=== PATIENT | male | born 1965 | race Caucasian/White ===

== ENCOUNTER 2021-09-25 13:27 | Emergency (ER) | payer MEDICAID ==
[~2021-09-25] VITALS: Ht 193 cm; Wt 120.2 kg
[2021-09-25 13:27] VITALS: BP_SYST 197
[2021-09-25] MEDS ORDERED: LIDOCAINE/EPI 1% 1:100000 20 ML VIAL INJ ONE (14:15)
[2021-09-25] MEDS ORDERED: DIPH-TET-PERTUS Vaccine 0.5 ML VIAL (ADACEL) I.M. ONE (14:15)
[2021-09-25 15:29] VITALS: BP_SYST 197
== END 2021-09-25 15:29 | disposition home or self-care (01) ==
LOC: SED 14:57
DX: S01.311A Laceration without foreign body of right ear, initial encounter (principal); H92.21 Otorrhagia, right ear; W26.8XXA Contact with other sharp object(s), not elsewhere classified, initial encounter; Y93.89 Activity, other specified; Y92.89 Other specified places as the place of occurrence of the external cause; Y99.8 Other external cause status
CPT/HCPCS: 90715; 99283

== ENCOUNTER 2021-10-17 16:59 | Inpatient (IN) | payer MEDICAID ==
[~2021-10-17] VITALS: Ht 193 cm; Wt 112.0 kg
[2021-10-17 17:40] VITALS: BP_SYST 149
--- NOTE | 2021-10-17 17:40 | NUR ---
Pt triaged and awaiting ER bed to become available. Will remain in ER lobby until then.
--- NOTE | 2021-10-17 18:55 | NUR ---
MD with patient for evaluation.
[2021-10-17] MEDS ORDERED: NS 1000 ML IV.SOLN IV ONE (19:00)
[2021-10-17] MEDS ORDERED: cefTRIAXone 1 GM IVPB PREMIX 50 ML IV ONE (19:00)
[2021-10-17] MEDS ORDERED: ACETAMINOPHEN 500 MG TABLET PO ONE (19:00)
--- NOTE | 2021-10-17 19:19 | NUR ---
REPORT GIVEN TO ROBYN PARIKH WHO WILL ASSUME CARE.
[2021-10-17 21:09] LABS: ANION GAP 7 (5-15); BASOPHILS # (AUTO) 0.1 K/uL (0.0-0.2); BASOPHILS % (AUTO) 0.7 % (0.0-2.0); CALCIUM 8.3 mg/dL (8.4-11.0); CHLORIDE 98 mmol/L (98-107); CREATININE 7.48 mg/dL (0.55-1.30); EOSINOPHILS # (AUTO) 0.1 K/uL (0.0-0.4); EOSINOPHILS % (AUTO) 0.9 % (0.0-4.0); GLUCOSE 111 mg/dL (70-99); HEMATOCRIT 25.9 % (36-54); HEMOGLOBIN 8.7 g/dL (14.0-18.0); LYMPHOCYTES # (AUTO) 0.9 K/uL (1.0-5.5); MEAN CORPUSCULAR HEMOGLOBIN 30 pg (27-31); MEAN CORPUSCULAR HGB CONC 33 % (32-36); MEAN CORPUSCULAR VOLUME 89 fL (79.0-98.0); MONOCYTES % (AUTO) 11.3 % (1.7-9.3); NEUTROPHILS # (AUTO) 6.9 K/uL (1.8-7.7); NEUTROPHILS % (AUTO) 77.1 % (40.0-70.0); PLATELET COUNT (AUTO) 179 K/uL (130-430); POTASSIUM 4.8 mmol/L (3.5-5.1); RED BLOOD CELL COUNT(AUTO) 2.92 MIL/uL (4.2-6.2); RED CELL DISTRIBUTION WIDTH 16.1 % (9.0-15.0); SODIUM SERUM 133 mmol/L (136-145); UREA NITROGEN, BLOOD 29 mg/dL (8-21); WHITE BLOOD COUNT (AUTO) 8.9 K/uL (4.8-10.8)
[2021-10-17 21:17] LABS: ALANINE AMINOTRANSFERASE 9 U/L (12-78); ALBUMIN 2.1 g/dL (3.4-4.8); ASPARTATE AMINOTRANSFERASE 21 U/L (10-37); TOTAL BILIRUBIN 0.8 mg/dL (0.0-1.0)
[2021-10-17 21:36] LABS: GFR AFRICAN AMERICAN 10 mL/min (>90)
[2021-10-17] MEDS ORDERED: HYDROcodone/ACETAMIN 5-325 MG TAB (NORCO/ VICODIN) PO ONE (21:45)
--- NOTE | 2021-10-17 22:33 | NUR ---
Pt is a dialysis patient, and has a port of the right side.
--- NOTE | 2021-10-17 22:33 | NUR ---
Pt came from home with c/o pain and bleeding from the left bottom foot, rate pain 10/10. Bleeding is controled. Pt has severe swelling in both lower extremities. Pt is A&O x4, and follows simple commands. Reports history of DM, HTN, and congestive heart failure.
[2021-10-17] MEDS ORDERED: cefTRIAXone 1 GM VIAL ONE (23:09)
[2021-10-17] MEDS ORDERED: ACETAMINOPHEN 500 MG TABLET ONE (23:11)
[2021-10-18] MEDS ORDERED: HYDROcodone/ACETAMIN 10-325 MG TAB PO SCH
--- NOTE | 2021-10-18 00:15 | NUR ---
Pt not able to provide home medications.
[2021-10-18] MEDS ORDERED: VANCOMYCIN HCL 1000 MG/VIAL IV ONE (00:18)
[2021-10-18] MEDS ORDERED: VANCOMYCIN HCL 1 GM/NS PREMIX 250 ML IV ONE (00:30)
--- NOTE | 2021-10-18 00:35 | NUR ---
HUMBERTO COLLECTED AMD SENT OVER TO LAB.
--- NOTE | 2021-10-18 01:22 | NUR ---
Admit bed requested Patient will be admitted to care of . Admitted to med surg unit. Diagnosis Cellulitis Inpatient (Yes or No) YES Observation (Yes or No) NO Orientation concerns or request close to nursing station (Yes or No) NO Covid Status PENDING On vent or bipap NO Isolation requirements NO Needs a sitter NO From Home (Yes or if No enter name of facility) YES Requires Dialysis (Yes or No) YES Med Rec Completed (Yes of No) NO, PT UNABLE TO RECALL MEDS.
[2021-10-18 01:27] LABS: BILIRUBIN,URINE NEGATIVE (NEGATIVE); CLARITY/URINE CLEAR (CLEAR); COLOR,URINE YELLOW (YELLOW); GLUCOSE,URINE TRACE (NEGATIVE); KETONES,URINE NEGATIVE (NEGATIVE); LEUKOCYTE ESTERASE ,URINE NEGATIVE (NEGATIVE); NITRITE, URINE NEGATIVE (NEGATIVE); PH,URINE 8.5 (5.0-8.0); PROTEIN URINE 3+ (NEGATIVE); UROBILINOGEN,URINE 0.2 (0.2-1.0)
[2021-10-18 01:29] LABS: BLOOD, URINE TRACE (NEGATIVE)
[2021-10-18 01:52] LABS: BACTERIA,URINE FEW /HPF (None Seen); RBC,URINE 0-3 /HPF (0-3); WBC,URINE 0-3 /HPF (0-3)
--- NOTE | 2021-10-18 02:10 | NUR ---
Pt resting at edge of bed with eyes closed. Pt reminded to stay all the way in bed. Non-slip socks applied. Safety precautions in place.
--- NOTE | 2021-10-18 02:45 | NUR ---
BSG 99
--- NOTE | 2021-10-18 03:19 | NUR ---
Patient will be admitted to care of Dr. Connors. Admitted to med surg unit. Will go to room 111A. Belongings list completed. Complete and up to date summary report printed. SBAR report given to Rosario CARLSON at bedside with opportunity for questions.
[2021-10-18] MEDS ORDERED: PIPERACILLIN/TAZOBACTAM 2.25 GM VIAL IV ONE (03:32)
[2021-10-18 04:00] VITALS: BP_SYST 137
--- NOTE | 2021-10-18 04:00 | NUR ---
ADMISSION: The patient, KAYLEEN URIBE, 56 y/o, M admitted by GAIL BACON MD, was given written information regarding hospital policies, unit procedures and contact persons. Valuables were checked and documented in [facility]..
[2021-10-18] MEDS: PIPERACILLIN/TAZOBACTAM 2.25 GM in NS 50 ML IV SCH ×3 (06:00)
--- NOTE | 2021-10-18 06:00 | NUR ---
PT RESTING COMFORTABLY IN BED, AOX4, NO DISTRESS OR DISCOMFORT NOTED, BREATHING EVEN AND UNLABORED, ALL FALL PROTOCOLS MAINTAINED, REPOSITIONS SELF PER COMFORT, PT VOMITED X1, WOUND PICTURE TAKEN AND PLACED IN THE CHART AND DRESSING DONE, DENIES PAIN, WILL CONTINUE TO MONITOR. Addendum: 10/18/21 at 0711 by [place] can reforming machine operator WOUND CULTURE SWAB DONE AND MRSA DONE AND SENT TO LAB.
--- NOTE | 2021-10-18 07:25 | NUR ---
SHIFT REPORT REPORT GIVEN TO JACQUELIN RN FOR CONTINUITY OF CARE ALL QUESTIONS WERE ANSWERED AND RN VERBALIZED UNDERSTANDING.
[2021-10-18 08:00] VITALS: BP_SYST 166
[2021-10-18] MEDS ORDERED: PIPERACILLIN/TAZOBACTAM 2.25 GM in NS 50 ML IV SCH (08:20)
[2021-10-18] MEDS ORDERED: CARV25TA55 PO (10:24)
[2021-10-18] MEDS ORDERED: ISOS30TA85 PO (10:27)
[2021-10-18] MEDS ORDERED: AMIT25TA9 PO (10:28)
[2021-10-18] MEDS ORDERED: BUME1TAB8 PO (10:29)
[2021-10-18] MEDS ORDERED: DOXY100T2 PO (10:30)
[2021-10-18] MEDS ORDERED: APIX5TAB4 PO (10:31)
[2021-10-18] MEDS ORDERED: LYR25 PO (10:33)
[2021-10-18] MEDS ORDERED: PHEDM120 PO (10:36)
[2021-10-18] MEDS ORDERED: SUCR500T PO (10:36)
[2021-10-18] MEDS ORDERED: ERGO50CA PO (10:42)
[2021-10-18] MEDS ORDERED: HYDR-3917 PO (10:43)
[2021-10-18] MEDS ORDERED: FOLI-43 PO (10:44)
[2021-10-18] MEDS: INSULIN REGULAR, HUMAN 100 UNITS/ML, 10 ML VIAL (humuLIN R) SUBCUT SCH ×3 (11:30→20:57)
[2021-10-18] MEDS ORDERED: PROMETHAZINE-DM 6.25 MG-15 MG/5 ML UDC PO PRN (11:45)
[2021-10-18] MEDS ORDERED: HYDROcodone/ACETAMIN 5-325 MG TAB (NORCO/ VICODIN) PO PRN (11:45)
[2021-10-18] MEDS ORDERED: NALOXONE HCL 0.4 MG/ML AMP (NARCAN) IVP PRN (11:45)
[2021-10-18] MEDS ORDERED: HYDROcodone/ACETAMIN 10-325 MG TAB PO PRN (12:02)
[2021-10-18] MEDS ORDERED: ISOSORBIDE MONONITRATE 30 MG TAB.ER.24H PO ONE (12:30)
[2021-10-18] MEDS ORDERED: BUMETANIDE 1 MG TABLET PO ONE (12:30)
[2021-10-18 12:52] VITALS: BP_SYST 152
[2021-10-18] MEDS ORDERED: HEPARIN SODIUM,PORCINE 5,000 UNITS/ML VIAL MC ONE (13:30)
--- NOTE | 2021-10-18 16:00 | NUR ---
CRITICAL LAB: from Laboratory called with critical lab value procalcitonin 2.10. Medical record number and patient name verified. Read back of values done. ID consult MD rider notified of value. meds orders given at this time.
[2021-10-18 16:03] VITALS: BP_SYST 160
[2021-10-18] MEDS ORDERED: EPOETIN ALFA-EPBX 4,000 UNITS/ML VIAL SUBCUT SCH (17:00)
[2021-10-18] MEDS ORDERED: VANCOMYCIN HCL 500 MG in NS 100 ML IV ONE (17:00)
--- NOTE | 2021-10-18 18:48 | NUR ---
A/Ox4,BP 160/83,has HD done and removed 2.6L per HD nurse,pt tolerated HD no acute distress noted,resumed meds after HD,cellulitis wounds in both feet,dressing changed per pt requests,c/o mild pain but pt refused to take prn meds for now.saline lock 20 gauge in left forearm patent and intact,needs attended,call light & personal items within pt reach safety maintained.continue to monitor pt.
[2021-10-18 20:00] VITALS: BP_SYST 149
[2021-10-18] MEDS ORDERED: MICAFUNGIN SODIUM 100 MG in NS 100 ML IV ONE (20:00)
--- NOTE | 2021-10-18 20:00 | NUR ---
REC'D PT IN BED AOX4, NO DISTRESS OR DISCOMFORT NOTED, BREATHING EVEN AND UNLABORED, DENIES PAIN, VITAL SIGNS STABLE, PT RESTING COMFORTABLY IN BED, ALL FALL PROTOCOLS MAINTAINED, BED IN LOWEST POSITION, CALL LIGHT WITHIN REACH, EDUCATED PT TO CALL FOR ASSISTANCE WHEN NEEDED, PT VERBALIZED UNDERSTANDING, WILL CONTINUE TO MONITOR.
[2021-10-18] MEDS: ceFAZolin SODIUM 1 GM in D5W 50 ML IV SCH (20:46)
[2021-10-18] MEDS: PREGABALIN 25 MG CAPSULE (LYRICA) PO SCH (20:47)
[2021-10-18] MEDS: AMITRIPTYLINE HCL 25 MG TABLET (ELAVIL) PO SCH (20:47)
[2021-10-18] MEDS: CARVEDILOL 25 MG TABLET (COREG) PO SCH (20:47)
[2021-10-18] MEDS: APIXABAN 2.5 MG TABLET PO SCH (20:57)
[2021-10-19] VITALS: BP_SYST 130
--- NOTE | 2021-10-19 04:00 | NUR ---
NO CHANGES NOTED THROUGHOUT THE SHIFT, PT RESTING COMFORTABLY IN BED, AOX4, NO DISTRESS OR DISCOMFORT NOTED, BREATHING EVEN AND UNLABORED, ALL FALL PROTOCOLS MAINTAINED, REPOSITIONS SELF PER COMFORT, WILL CONTINUE TO MONITOR.
[2021-10-19] MEDS: INSULIN REGULAR, HUMAN 100 UNITS/ML, 10 ML VIAL (humuLIN R) SUBCUT SCH ×4 (06:44→21:00)
--- NOTE | 2021-10-19 07:19 | NUR ---
SHIFT CHANGE REPORT GIVEN TO PILLO RN FOR CONTINUITY OF CARE ALL QUESTIONS WERE ANSWERED AND RN VERBALIZED UNDERSTANDING.
[2021-10-19 08:54] LABS: CALCIUM 7.9 mg/dL (8.4-11.0); CREATININE 7.56 mg/dL (0.55-1.30); POTASSIUM 4.8 mmol/L (3.5-5.1)
[2021-10-19] MEDS ORDERED: EPOETIN ALFA-EPBX 4,000 UNITS/ML VIAL SUBCUT SCH (09:02)
[2021-10-19] MEDS: ISOSORBIDE MONONITRATE 30 MG TAB.ER.24H PO SCH (09:57)
[2021-10-19] MEDS: CARVEDILOL 25 MG TABLET (COREG) PO SCH ×2 (09:58→22:07)
[2021-10-19] MEDS: ceFAZolin SODIUM 1 GM in D5W 50 ML IV SCH ×2 (09:59→21:30)
[2021-10-19] MEDS: BUMETANIDE 1 MG TABLET PO SCH (09:59)
[2021-10-19] MEDS: APIXABAN 2.5 MG TABLET PO SCH ×2 (10:08→22:07)
[2021-10-19] MEDS: FOLIC ACID 1 MG TABLET PO SCH (10:08)
--- NOTE | 2021-10-19 16:30 | NUR ---
WOUND EVALUATION: Late note for 10/19/2021 at 1630 secondary to patient care. Wound Consult received from Dr. Connors. Thank you, Dr. Connors, for the consult. Patient received in a Ora Bed with an Isoflex mattress, awake, alert, and oriented. Patient is able to turn independently. Cash Score is a 20. Past Medical History: Hypertension, Diabetes Mellitus, End-Stage Renal Failure, Peripheral Vascular Disease of Lower Extremities, Charcot Foot, multiple surgeries of the right foot. Recent Labs: WBC 8.9, RBC 2.92, hemoglobin 8.7, hematocrit 25.9, ESR 109, sodium 134, BUN 33, creatinine 7.56, GFR 8, glucose 108, POC glucose 113, calcium 7.9, albumin 2.1. Microbiology: Blood culture results x2 in progress. Urine culture results negative. MRSA screen results negative. Wound culture results positive for Pseudomonas aeruginosa. Intrinsic factors that delay wound healing: Diabetes Mellitus, End-Stage Renal Failure, Peripheral Vascular Disease of Lower Extremities, Charcot Foot, multiple surgeries of the right foot, Hypoalbuminemia. Extrinsic factors that delay wound healing: Decreased mobility. Wound Assessment: 1. Right Plantar Heel: Acute on Chronic Diabetic ulcer, present on admission. Wound bed has 55% yellow slough, 40% black slough, 5% dark red tissue. Mild odor, scant yellow drainage. Periwound intact. Surrounding tissue has yellow and brown scaly skin. Foot has Charcot changes. Measures 6.5 cm x 5.8 cm x 0.5 cm. 2. Right Plantar Lateral Foot: Acute on Chronic Diabetic ulcer, present on admission. Wound bed has 55% yellow slough, 40% black slough, 5% dark red tissue. Mild odor, scant yellow drainage. Periwound intact. Surrounding tissue has yellow and brown scaly skin. Foot has Charcot changes. Measures 6.8 cm x 6.6 cm x 1.5 cm. Recommend: Cleanse wounds with normal saline. Apply moisture barrier cream to jose ramon-wounds. Apply Venelex ointment to wound beds. Cover with foam dressings. Wrap with Tereza wrap. Perform wound care daily, and as needed for dressing soiling or dislodgement. 3. Left Plantar Foot, Second Metatarsal Head: Chronic diabetic ulcer, present on admission. Wound bed has 100% black eschar. No odor, no drainage. Periwound intact. Dry, stable. Foot has Charcot changes. Wound measures 1.8 cm x 1.5 cm. 4. Left Plantar Foot, Fourth Metatarsal Head: Chronic diabetic ulcer, present on admission. Wound bed has 100% black eschar. No odor, no drainage. Periwound intact. Dry, stable. Foot has Charcot changes. Wound measures 1.7 cm x 1.5 cm. 5. Left Plantar Lateral Foot, Fifth Metatarsal Head: Chronic diabetic ulcer, present on admission. Wound bed has 100% black eschar. No odor, no drainage. Periwound intact. Dry, stable. Foot has Charcot changes. Wound measures 0.7 cm x 0.6 cm. Recommend: [place] wound beds with Betadine daily. Cover sites with foam dressings. Change dressing daily, and as needed for dressing soiling or dislodgment. 6. Right Ear Lobe: Dry black scab, present on admission. Scab site has sutures inside. No odor, no drainage. Scab is starting to fall off. Wound measures 0.6 cm x 0.6 cm. Recommend: No dressing needed. Continue to monitor site every shift. Scab will fall off when wound site has healed. Also recommend: Reposition patient every 2 hours with pillow support and off-load pressure areas with pillows for pressure re-distribution. Offload, elevate and float bilateral heels with pillows. Perform skin care and monitor skin integrity Q shift. Use moisture barrier cream on buttocks and other moisture susceptible areas QID and as needed for soiling. Place patient on a low air-loss mattress.
[2021-10-19] MEDS: BALSAM PERU/CASTOR OIL 56.7 GM OINT...G. TP SCH (17:00)
[2021-10-19] MEDS: CALCIUM ACETATE 667 MG CAP PO SCH (19:12)
[2021-10-19 20:00] VITALS: BP_SYST 145
[2021-10-19] MEDS: MICAFUNGIN SODIUM 100 MG in NS 100 ML IV SCH (21:30)
[2021-10-19] MEDS: AMITRIPTYLINE HCL 25 MG TABLET (ELAVIL) PO SCH (22:07)
[2021-10-19] MEDS: PREGABALIN 25 MG CAPSULE (LYRICA) PO SCH (22:07)
[2021-10-20] VITALS: BP_SYST 151
[2021-10-20] MEDS: INSULIN REGULAR, HUMAN 100 UNITS/ML, 10 ML VIAL (humuLIN R) SUBCUT SCH ×3 (07:00→17:00)
--- NOTE | 2021-10-20 07:26 | NUR ---
SHIFT CHANGE REPORT GIVEN TO PILLO RN FOR CONTINUITY OF CARE ALL QUESTIONS WERE ANSWERED AND RN VERBALIZED UNDERSTANDING.
[2021-10-20 08:00] VITALS: BP_SYST 147
[2021-10-20] MEDS ORDERED: EPOETIN ALFA-EPBX 3,000 UNITS/ML VIAL SUBCUT SCH (09:00)
[2021-10-20] MEDS: CARVEDILOL 25 MG TABLET (COREG) PO SCH ×2 (09:58→20:18)
[2021-10-20] MEDS: CALCIUM ACETATE 667 MG CAP PO SCH ×3 (09:58→18:51)
[2021-10-20] MEDS: ceFAZolin SODIUM 1 GM in D5W 50 ML IV SCH (09:59)
[2021-10-20] MEDS: FOLIC ACID 1 MG TABLET PO SCH (09:59)
[2021-10-20] MEDS: BUMETANIDE 1 MG TABLET PO SCH (10:00)
[2021-10-20] MEDS: BALSAM PERU/CASTOR OIL 56.7 GM OINT...G. TP SCH (10:00)
[2021-10-20] MEDS: ISOSORBIDE MONONITRATE 30 MG TAB.ER.24H PO SCH (10:00)
[2021-10-20] MEDS: APIXABAN 2.5 MG TABLET PO SCH ×2 (10:01→20:19)
[2021-10-20] MEDS ORDERED: HEPARIN SODIUM,PORCINE 5,000 UNITS/ML VIAL MC ONE (12:45)
[2021-10-20] MEDS ORDERED: amLODIPine BESYLATE 10 MG TABLET PO ONE (18:00)
[2021-10-20] MEDS ORDERED: cloNIDine HCL 0.1 MG TABLET PO PRN (18:00)
[2021-10-20] MEDS ORDERED: cloNIDine HCL 0.1 MG TABLET PO ONE (18:30)
[2021-10-20] MEDS ORDERED: EPOETIN ALFA 4,000 UNITS/ML VIAL ONE ×2 (18:49→18:58)
[2021-10-20 20:00] VITALS: BP_SYST 154
[2021-10-20] MEDS: PREGABALIN 25 MG CAPSULE (LYRICA) PO SCH (20:17)
[2021-10-20] MEDS: AMITRIPTYLINE HCL 25 MG TABLET (ELAVIL) PO SCH (20:17)
[2021-10-20] MEDS: MICAFUNGIN SODIUM 100 MG in NS 100 ML IV SCH (20:20)
[2021-10-20 21:19] VITALS: BP_SYST 154
--- NOTE | 2021-10-20 22:01 | NUR ---
DISCHARGE INSTRUCTIONS GIVEN TO PATIENT. PATIENT VERBALIZED UNDERSTANDING OF T HE DISCHARGE INSTRUCTIONS. PAPERWORKS ACKNOWLEDGED AND SIGNED BY PATIENT. PATIENT DISCHARGED IN STABLE CONDITION. NO DISTRESS NOTED. HEPLOCK REMOVED WITH CATHETER INTACT. VS STABLE. WHEELED BY VINCENT CARLSON TO THE EXIT DOOR. DISCHARGED AT 2200H.
== END 2021-10-20 22:17 | disposition home or self-care (01) | DRG 383 ==
LOC: SED 16:59 → SMU 10-18 00:32
PROVIDERS: ADMIT Family Medicine; ATTEND Family Medicine
PROC: 5A1D70Z Performance of Urinary Filtration, Intermittent, Less than 6 Hours Per Day (ICD-10-PCS; principal; 2021-10-20)
DX: L03.116 Cellulitis of left lower limb (principal); E43 Unspecified severe protein-calorie malnutrition; A52.16 Charcot's arthropathy (tabetic); E11.610 Type 2 diabetes mellitus with diabetic neuropathic arthropathy; I12.0 Hypertensive chronic kidney disease with stage 5 chronic kidney disease or end stage renal disease; E11.22 Type 2 diabetes mellitus with diabetic chronic kidney disease; D64.9 Anemia, unspecified; L03.115 Cellulitis of right lower limb; N18.6 End stage renal disease; E11.51 Type 2 diabetes mellitus with diabetic peripheral angiopathy without gangrene; E11.621 Type 2 diabetes mellitus with foot ulcer; L97.428 Non-pressure chronic ulcer of left heel and midfoot with other specified severity; Z99.2 Dependence on renal dialysis; Z79.899 Other long term (current) drug therapy; E44.0 Moderate protein-calorie malnutrition
CPT/HCPCS: 36415; 71045; 73721; 80048; 80053; 80202; 81000; 82962; 83605; 84484; 85025; 85651-TC; 85730-TC; 86140; 87040; 87070-TC; 87081; 87086; 90935; 90937; 93005; 93923; 96365; 99291; J0690; J0696; J0885; J1644; J1815; J2248; J2543; J3370; J7030; J7060; Q5106

== ENCOUNTER 2022-01-12 14:04 | Inpatient (IN) | payer MEDICAID ==
[~2022-01-12] VITALS: Ht 193 cm; Wt 99.8 kg
[~2022-01-12 14:04] MED LIST: AMIT25TA9 PO; APIX5TAB4 PO; BUME1TAB8 PO; CARV25TA55 PO; DOXY100T2 PO; ERGO50CA PO; FOLI-43 PO; HYDR-3917 PO; ISOS30TA85 PO; LYR25 PO; PHEDM120 PO; SUCR500T PO
[2022-01-12 14:10] VITALS: BP_SYST 110
--- NOTE | 2022-01-12 14:26 | NUR ---
Placed in room 7 . Placed on cardiac technologist, blood pressure machine and pulse oximeter. To gown for exam. Side rails up. Report given to ROBYN SULLIVAN.
--- NOTE | 2022-01-12 14:45 | NUR ---
RECEIVED PT IN BED #7 BIBA FROM DIALYSIS CENTER FOR CC OF FAST HEART RATE NOT ALLOWING FOR DIALYSIS. PT IS STABLE, NAD, VSS, AAOX3, MILD PAIN TO THE BILATERAL FEET. PT HAS WOUNDS THAT ARE BEING TREATED BY OUTPATIENT CARE. PT TO BE FURTHER ASSESSED BY ED MD FOR PLAN OF CARE WITH DISPOSITION.
[2022-01-12] MEDS ORDERED: dilTIAZem HCL IVP 5 MG/ML VIAL IVP ONE ×2 (15:00→19:45)
--- NOTE | 2022-01-12 15:00 | NUR ---
ER at bedside examining patient.
[2022-01-12 15:45] LABS: BASOPHILS % (AUTO) 0.5 % (0.0-2.0); EOSINOPHILS % (AUTO) 0.4 % (0.0-4.0); LYMPHOCYTES # (AUTO) 0.8 K/uL (1.0-5.5); MEAN CORPUSCULAR HEMOGLOBIN 27 pg (27-31); MEAN CORPUSCULAR HGB CONC 32 % (32-36); MEAN CORPUSCULAR VOLUME 84 fL (79.0-98.0); MONOCYTES # (AUTO) 0.8 K/uL (0.0-1.0); MONOCYTES % (AUTO) 7.8 % (1.7-9.3); NEUTROPHILS # (AUTO) 8.4 K/uL (1.8-7.7); NEUTROPHILS % (AUTO) 83.3 % (40.0-70.0); PLATELET COUNT (AUTO) 408 K/uL (130-430); RED BLOOD CELL COUNT(AUTO) 2.23 MIL/uL (4.2-6.2); RED CELL DISTRIBUTION WIDTH 17.4 % (9.0-15.0); WHITE BLOOD COUNT (AUTO) 10.1 K/uL (4.8-10.8)
[2022-01-12] MEDS ORDERED: VANCOMYCIN HCL 1,000 MG in NS 250 ML IV ONE (15:45)
[2022-01-12] MEDS ORDERED: PIPERACILLIN/TAZO 3.375 GM in NS 50 ML IV ONE (15:45)
[2022-01-12] MEDS ORDERED: VANCOMYCIN HCL 1000 MG/VIAL IV ONE (15:57)
[2022-01-12 15:58] LABS: INR 1.1 (0.80-1.20); PROTHROMBIN TIME 10.8 SECS (9.5-12.5)
[2022-01-12] MEDS ORDERED: PIPERACILLIN/TAZOBACTAM 3.375 GM/VIAL (ZOSYN) IV ONE (15:58)
[2022-01-12 16:00] LABS: HEMATOCRIT 18.7 % (36-54)
[2022-01-12] MEDS ORDERED: fentaNYL CITRATE/PF 100 MCG/2 ML AMP IVP ONE (16:00)
[2022-01-12 16:10] LABS: ANION GAP 9 (5-15); CALCIUM 8.9 mg/dL (8.4-11.0); CHLORIDE 97 mmol/L (98-107); CREATININE 5.86 mg/dL (0.55-1.30); GFR AFRICAN AMERICAN 13 mL/min (>90); GLUCOSE 115 mg/dL (70-99); POTASSIUM 4.9 mmol/L (3.5-5.1); UREA NITROGEN, BLOOD 34 mg/dL (8-21)
[2022-01-12] MEDS ORDERED: ONDANSETRON HCL 4 MG/2 ML VIAL IVP ONE (16:15)
[2022-01-12 16:19] LABS: ALANINE AMINOTRANSFERASE 17 U/L (12-78); ALBUMIN 0.9 g/dL (3.4-4.8); ASPARTATE AMINOTRANSFERASE 37 U/L (10-37); LACTATE DEHYDROGENASE 170 U/L (85-227); TOTAL BILIRUBIN 0.6 mg/dL (0.0-1.0)
[2022-01-12] MEDS ORDERED: ONDANSETRON HCL 4 MG/2 ML VIAL ONE (16:20)
[2022-01-12 16:30] LABS: C-REACTIVE PROTEIN QUANT 27.8 mg/dL (0-0.5)
[2022-01-12] MEDS ORDERED: NACL 0.9% 1,000 ML IV ONE (16:30)
--- NOTE | 2022-01-12 18:06 | NUR ---
PT IS STABLE, NAD, VSS, AAOx3, AWAITING ROOM ON TELEMETRY AND ADMISSION ORDERS.
--- NOTE | 2022-01-12 18:15 | NUR ---
Admit bed requested Patient will be admitted to care of . Admitted to ICU unit. Diagnosis AFIB Inpatient (Yes or No) Y Observation (Yes or No) N Orientation concerns or request close to nursing station (Yes or No) N Covid Status N On vent or bipap N Isolation requirements N Needs a sitter N From Home (Yes or if No enter name of facility) Y Requires Dialysis (Yes or No) Y Med Rec Completed (Yes of No) Y
--- NOTE | 2022-01-12 21:00 | NUR ---
Consent signed per DR. HUFFMAN AND PATIENT agreeing to administration of blood. Blood has been type and crossmatched. Blood sent from blood bank. Information on unit of blood checked against patient wristband at bedside by two nurses. All information matches. Patient or responsible republican informed of potential complications associated with blood transfusion. Informed of possible transfusion reaction symptoms. Aware of need to notify nurse at once of itching, shortness of breath, flushing, feeling of impending doom, or other symptoms not previously present. Vital signs taken within 5 minutes prior to initiation of transfusion. RN will remain with patient for first 15 minutes of transfusion at which time vital signs will be re-assessed.
--- NOTE | 2022-01-12 21:25 | NUR ---
BLOOD TRANSFUSION STARTED.
[2022-01-12] MEDS ORDERED: DIPHENHYDRAMINE INJ 50 MG/ML VIAL IVP ONE (21:30)
--- NOTE | 2022-01-12 22:50 | NUR ---
Patient will be admitted to care of ICU MD. Admitted to unit. Will go to room . Belongings list completed. Complete and up to date summary report printed. SBAR report to be given at bedside with opportunity for questions.
[2022-01-12 22:55] VITALS: BP_SYST 108
--- NOTE | 2022-01-12 23:05 | NUR ---
PATIENT TRANSFERRED WITHOUT ISSUE. CARE AND REPORT GIVEN TO ROBYN MARIO.
[2022-01-12] MEDS ORDERED: ONDANSETRON HCL 4 MG/2 ML VIAL IVP PRN (23:15)
[2022-01-12] MEDS ORDERED: PROMETHAZINE-DM 6.25 MG-15 MG/5 ML UDC PO PRN (23:15)
[2022-01-12] MEDS ORDERED: NALOXONE HCL 0.4 MG/ML AMP (NARCAN) IVP PRN (23:15)
[2022-01-12] MEDS ORDERED: ACETAMINOPHEN 325 MG TABLET PO PRN (23:15)
[2022-01-12] MEDS: AMITRIPTYLINE HCL 25 MG TABLET (ELAVIL) PO SCH (23:30)
[2022-01-13] VITALS (23 sets, daily range): BP systolic 92–142
--- NOTE | 2022-01-13 00:01 | NUR ---
CONSULTATION PAGED/CALLED Reason for Consultation: Uncontrolled Afib Person Who was Notified: kannan Bustamante Consulting Physician: Dr. Jenny Pinto Bottom Turning Lathe Turner Specialty: Cardiology Ordering Physician: Dr. Judy Pinto
--- NOTE | 2022-01-13 00:05 | NUR ---
CONSULTATION PAGED/CALLED Reason for Consultation: AFIB Person Who was Notified: kannan Mazariegos Consulting Physician: Dr Barker Industrial Technology Teacher Specialty: Pulmonary Ordering Physician: Dr Judy Pinto
--- NOTE | 2022-01-13 00:07 | NUR ---
CONSULTATION PAGED/CALLED Reason for Consultation: BLE wound infection Person Who was Notified: Calin Lowry Consulting Physician: Dr Villa Safety Fire Boss Specialty: ID Ordering Physician: Dr. Judy Pinto
[2022-01-13] MEDS ORDERED: NOREPINEPHRINE BITARTRATE 4 MG in NS 246 ML IV PRN (00:15)
[2022-01-13] MEDS ORDERED: dilTIAZem HCL IVP 5 MG/ML VIAL IVP ONE (00:15)
[2022-01-13] MEDS ORDERED: [UNRECOGNIZED DRUG - OTHER] IV SCH (00:15)
--- NOTE | 2022-01-13 00:33 | NUR ---
CONSULTATION PAGED/CALLED Reason for Consultation: Anemia Person Who was Notified: Calin Bustamante Consulting Physician: Dr. Garcia Mail Handler Specialty: Hematology Ordering Physician: Dr. Judy Pinto
--- NOTE | 2022-01-13 00:35 | NUR ---
CONSULTATION PAGED/CALLED Reason for Consultation: Dialysis Person Who was Notified: Margarette Consulting Physician: Dr Dodge Security Control Room Officer Specialty: Nephrology Ordering Physician: Dr.A. Pinto
[2022-01-13] MEDS ORDERED: PIPERACILLIN/TAZOBACTAM 2.25 GM VIAL IV ONE (02:31)
[2022-01-13] MEDS ORDERED: NORMAL SALINE 5 ML DISP.SYRIN IVF SCH (06:00)
[2022-01-13] MEDS: NORMAL SALINE 5 ML DISP.SYRIN IVF SCH ×3 (06:00→21:56)
[2022-01-13 08:31] LABS: CALCIUM 8.1 mg/dL (8.4-11.0); CREATININE 6.49 mg/dL (0.55-1.30); PHOSPHORUS 5.7 mg/dL (2.7-4.5); POTASSIUM 5.3 mmol/L (3.5-5.1)
[2022-01-13 08:53] LABS: BASOPHILS # (AUTO) 0.1 K/uL (0.0-0.2); BASOPHILS % (AUTO) 0.6 % (0.0-2.0); EOSINOPHILS # (AUTO) 0.2 K/uL (0.0-0.4); EOSINOPHILS % (AUTO) 2.6 % (0.0-4.0); LYMPHOCYTES # (AUTO) 0.7 K/uL (1.0-5.5); LYMPHOCYTES % (AUTO) 7.8 % (20.5-51.5); MEAN CORPUSCULAR HEMOGLOBIN 28 pg (27-31); MEAN CORPUSCULAR HGB CONC 33 % (32-36); MEAN CORPUSCULAR VOLUME 85 fL (79.0-98.0); MONOCYTES # (AUTO) 0.5 K/uL (0.0-1.0); NEUTROPHILS # (AUTO) 7.8 K/uL (1.8-7.7); PLATELET COUNT (AUTO) 334 K/uL (130-430); RED BLOOD CELL COUNT(AUTO) 2.47 MIL/uL (4.2-6.2); RED CELL DISTRIBUTION WIDTH 16.9 % (9.0-15.0); WHITE BLOOD COUNT (AUTO) 9.3 K/uL (4.8-10.8)
[2022-01-13] MEDS ORDERED: NON-FORMULARY MEDICATION (Sucroferric Oxyhydroxide (Velphoro) 1 TAB) PO SCH (09:00)
--- NOTE | 2022-01-13 09:00 | NUR ---
ACTIVITY PT ASKED FOR HELP IN GETTING TO THE BATHROOM, OFFERED HIM A BEDPAN, PT DECLINED. HE REPLIED "I CAN WALK IF ONE CAN HELP ME BRING MY LEGS DOWN ON THE FLOOR." EDEMA TO BOTH LOWER EXTREMITIES, WOUNDS TO FEET. PT REQUIRED TO BE LIFTED HOLDING HIS UNDER ARMS OFF THE TOILET SEAT. HEIGHT OF THE TOILET BOWL IS TOO LOW FOR HIM.
--- NOTE | 2022-01-13 10:50 | NUR ---
TO CT SCAN TRANSPORTED PT VIA WHEELCHAIR, FOR CT SCAN OF LOWER EXTREMITIES.
--- NOTE | 2022-01-13 11:10 | NUR ---
TO ICU BROUGHT PT BACK TO ROOM 2.
[2022-01-13] MEDS: [UNRECOGNIZED DRUG - OTHER] IV SCH (11:16)
[2022-01-13] MEDS: BUMETANIDE 1 MG TABLET PO SCH (11:17)
[2022-01-13] MEDS: ISOSORBIDE MONONITRATE 30 MG TAB.ER.24H PO SCH (11:20)
[2022-01-13] MEDS: CARVEDILOL 25 MG TABLET (COREG) PO SCH ×2 (11:20→21:00)
--- NOTE | 2022-01-13 11:20 | NUR ---
IV IV IN THE LEFT WRIST STOPPED WORKING, CATHETER KINKED AND D/CD. ATTEMPTED IV INSERTION 2 TIMES, UNSUCCESSFUL.
[2022-01-13] MEDS: FOLIC ACID 1 MG TABLET PO SCH (11:23)
[2022-01-13] MEDS: APIXABAN 2.5 MG TABLET PO SCH ×2 (11:24→21:55)
[2022-01-13] MEDS ORDERED: DILTIAZEM HCL 30 MG TABLET PO ONE (12:15)
--- NOTE | 2022-01-13 12:30 | NUR ---
LOW HEMOGLOBIN DR ROBISON IN THE UNIT. MADE AWARE OF HEMOGLOBIN 7, HEMATOCRIT 21, NO NEW ORDERS. PT WILL HAVE DIALYSIS TREATMENT TODAY.
--- NOTE | 2022-01-13 13:35 | NUR ---
TEST PT JUST COMPLETED AN ECHOCARDIOGRAM.
--- NOTE | 2022-01-13 13:40 | NUR ---
IV ANOTHER RN ATTEMPTED TO INSERT IV, A/C AREA, USING 22 GAUGE CATHETER.
--- NOTE | 2022-01-13 14:54 | NUR ---
PICC DISCUSSED THE PLAN OF CARE, PICC LINE ORDERED. PT REFUSED PICC.
--- NOTE | 2022-01-13 15:25 | NUR ---
PATIENT REFUSED PHYSICAL THERAPY EVALUATION TODAY DUE TO TIREDNESS, RN WAS NOTIFIED.
--- NOTE | 2022-01-13 16:25 | NUR ---
BT INITIATION: Consent signed per patient agreeing to administration of blood. Blood has been typed and crossmatched. Blood sent from blood bank. Information on unit of blood checked against patient wristband at bedside by two nurses. All information matches. Patient or responsible republican informed of potential complications associated with blood transfusion. Informed of possible transfusion reaction symptoms. Aware of need to notify nurse at once of itching, shortness of breath, flushing, feeling of impending doom, or other symptoms not previously present. Vital signs taken within 5 minutes prior to initiation of transfusion. RN will remain with patient for first 15 minutes of transfusion at which time vital signs will be re-assessed.
[2022-01-13] MEDS: HYDROcodone/ACETAMIN 5-325 MG TAB (NORCO/ VICODIN) PO PRN ×2 (16:39→21:57)
[2022-01-13] MEDS ORDERED: EPOETIN ALFA-EPBX 4,000 UNITS/ML VIAL SUBCUT ONE (18:00)
[2022-01-13] MEDS: DILTIAZEM HCL 30 MG TABLET PO SCH (18:29)
--- NOTE | 2022-01-13 20:43 | NUR ---
HIGH ALERT NOTE: Called Dr. Massey back at identified within the medical roster to verify physician authenticity. For heparin used after dialysis treatement. Addendum: 01/13/22 at 2046 by Octavia Colmenares RN HIGH ALERT NOTE: Called Dr. Massey back at identified within the medical roster to verify physician authenticity. For heparin used after dialysis treatment.
[2022-01-13] MEDS ORDERED: HEPARIN SODIUM, PORCINE 10,000 UNITS/ 10 ML VIAL MC ONE (20:45)
[2022-01-13] MEDS: AMITRIPTYLINE HCL 25 MG TABLET (ELAVIL) PO SCH ×2 (21:00→21:55)
[2022-01-13] MEDS: PREGABALIN 25 MG CAPSULE (LYRICA) PO SCH (21:54)
[2022-01-13] MEDS ORDERED: HEPARIN SODIUM,PORCINE 5,000 UNITS/ML VIAL MC ONE ×2 (22:00)
[2022-01-14] VITALS (20 sets, daily range): BP systolic 110–136
[2022-01-14] MEDS: [UNRECOGNIZED DRUG - OTHER] IV SCH (01:58)
--- NOTE | 2022-01-14 04:00 | NUR ---
I received pt from outgoing nurse alert oriented x 4.vitals done and recorded BPS 137/90 HR 107 RR 18 TEMP 97.5 SPO2- -93% offered a bed mandujano, cleaned and linen changed and positioned to comfort side.Fall precautions maintained
[2022-01-14 06:52] LABS: BASOPHILS % (AUTO) 0.5 % (0.0-2.0); EOSINOPHILS # (AUTO) 0.4 K/uL (0.0-0.4); EOSINOPHILS % (AUTO) 4.8 % (0.0-4.0); HEMATOCRIT 23.4 % (36-54); HEMOGLOBIN 7.7 g/dL (14.0-18.0); LYMPHOCYTES # (AUTO) 0.8 K/uL (1.0-5.5); LYMPHOCYTES % (AUTO) 11.3 % (20.5-51.5); MEAN CORPUSCULAR HEMOGLOBIN 28 pg (27-31); MEAN CORPUSCULAR HGB CONC 33 % (32-36); MEAN CORPUSCULAR VOLUME 86 fL (79.0-98.0); MONOCYTES # (AUTO) 0.5 K/uL (0.0-1.0); MONOCYTES % (AUTO) 6.5 % (1.7-9.3); NEUTROPHILS # (AUTO) 5.7 K/uL (1.8-7.7); NEUTROPHILS % (AUTO) 76.9 % (40.0-70.0); PLATELET COUNT (AUTO) 323 K/uL (130-430); RED BLOOD CELL COUNT(AUTO) 2.73 MIL/uL (4.2-6.2); RED CELL DISTRIBUTION WIDTH 16.5 % (9.0-15.0); WHITE BLOOD COUNT (AUTO) 7.4 K/uL (4.8-10.8)
[2022-01-14] MEDS: NORMAL SALINE 5 ML DISP.SYRIN IVF SCH ×2 (07:23→14:11)
[2022-01-14] MEDS: DILTIAZEM HCL 30 MG TABLET PO SCH ×4 (07:24→18:16)
[2022-01-14 07:43] LABS: TOTAL IRON BIND. CAPACITY 77 ug/dL (250-450)
[2022-01-14 07:50] LABS: CALCIUM 8.3 mg/dL (8.4-11.0); CREATININE 5.77 mg/dL (0.55-1.30); PHOSPHORUS 4.8 mg/dL (2.7-4.5); POTASSIUM 4.7 mmol/L (3.5-5.1)
[2022-01-14] MEDS: FOLIC ACID 1 MG TABLET PO SCH (08:31)
[2022-01-14] MEDS: ISOSORBIDE MONONITRATE 30 MG TAB.ER.24H PO SCH (08:31)
[2022-01-14] MEDS: BUMETANIDE 1 MG TABLET PO SCH ×2 (08:32→08:40)
[2022-01-14] MEDS: CARVEDILOL 25 MG TABLET (COREG) PO SCH ×2 (08:32→20:43)
[2022-01-14] MEDS: APIXABAN 2.5 MG TABLET PO SCH ×2 (08:33→20:44)
[2022-01-14] MEDS ORDERED: ERGOCALCIFEROL 50000 UNIT PO SCH (09:00)
[2022-01-14 10:05] LABS: C-REACTIVE PROTEIN QUANT 21.2 mg/dL (0-0.5)
--- NOTE | 2022-01-14 10:30 | NUR ---
HYGIENE. PT CALLED AND WANTED TO BE TAKEN TO THE BATHROOM, WEAKNESS TO BOTH LEGS, WITH EDEMA, OFFERED A BEDPAN, "I'D LIKE TO USE THE BATHROOM BUT OK I CAN TRY THE BEDPAN.". AMPLE TIME GIVEN AND CAME BACK, BEDPAN RELEASED FROM THE BOTTOM, PT HAD SOFT STOOL, BROWN COLOR, PERINEAL CARE PROVIDED, BED BATH WELL. GOWN AND LINEN CHANGED.
[2022-01-14 10:44] LABS: ERYTHROCYTE SEDIMENTATION RATE 118 MM/HR (0-15)
[2022-01-14 11:05] LABS: RETICULOCYTE COUNT 1.9 % (0.5-1.5)
[2022-01-14] MEDS ORDERED: levoFLOXacin 500 MG TABLET PO ONE (11:30)
[2022-01-14] MEDS ORDERED: COMMUNICATION ORDER XX ONE (11:30)
[2022-01-14 14:19] LABS: BILIRUBIN,URINE NEGATIVE (NEGATIVE); BLOOD, URINE NEGATIVE (NEGATIVE); CLARITY/URINE CLEAR (CLEAR); COLOR,URINE YELLOW (YELLOW); GLUCOSE,URINE NEGATIVE (NEGATIVE); KETONES,URINE NEGATIVE (NEGATIVE); LEUKOCYTE ESTERASE ,URINE NEGATIVE (NEGATIVE); NITRITE, URINE NEGATIVE (NEGATIVE); PH,URINE 8.5 (5.0-8.0); PROTEIN URINE 2+ (NEGATIVE); UROBILINOGEN,URINE 0.2 (0.2-1.0)
[2022-01-14 15:25] LABS: BACTERIA,URINE None Seen /HPF (None Seen); MUCUS,URINE None Seen /LPF (None Seen); RBC,URINE NONE SEEN /HPF (0-3); WBC,URINE 0-3 /HPF (0-3)
--- NOTE | 2022-01-14 16:50 | NUR ---
SPECIMEN PT CALLED AND ATTENDED. HE ASKED FOR A BEDPAN, STOOL SAMPLE COLLECTED AFTER EMPTYING HIS BOWELS. PERINEAL HYGIENE PROVIDED.
--- NOTE | 2022-01-14 18:40 | NUR ---
ICU TRANSFER NOTES: RECEIVED REPORT FROM [facility] NURSE.PUT PATIENT ON TELEMETRY,AFIB/SINUS RHYTHM.VITAL SIGNS TAKEN.AFEBRILE.WITH RIGHT SUBCLAVIAN PERMA CATHETER,DRESSING CLEAN AND DRY. WITH BILATERAL HEEL DRESSING ON CLEAN AND DRY.LEFT AC SALINE LOCK,INTACT. CALL LIGHT WITH IN REACH. BED LOCKED AT LOWEST POSITION. NO ACUTE DISTRESS.
--- NOTE | 2022-01-14 18:40 | NUR ---
TO MST HANDOFF REPORT GIVEN TO ROBYN DUGGAN. TRANSPORTED PT TO TELEMETRY DEPT ROOM 102-B VIA BED, ALL PERSONAL BELONGINGS WITH THE PATIENT.
--- NOTE | 2022-01-14 19:15 | NUR ---
EVENING NOTES: ENDORSED TO NIGHT NURSE FRANKIE,PATIENT IN STABLE CONDITION.
[2022-01-14] MEDS: PREGABALIN 25 MG CAPSULE (LYRICA) PO SCH (20:44)
[2022-01-14] MEDS: AMITRIPTYLINE HCL 25 MG TABLET (ELAVIL) PO SCH (20:46)
[2022-01-15] VITALS: BP_SYST 132
--- NOTE | 2022-01-15 | NUR ---
pt medicated as ordered .was seen by Dr Villa, we need to request for wound culture's sensitivity.pt requesting to have his antibiotics with dialysis .has declined to consent for a PICC Line.vitals updated and medicated as ordered
[2022-01-15] MEDS: DILTIAZEM HCL 30 MG TABLET PO SCH ×3 (00:15→12:00)
[2022-01-15] MEDS: NORMAL SALINE 5 ML DISP.SYRIN IVF SCH ×3 (00:16→15:29)
[2022-01-15] MEDS: HYDROcodone/ACETAMIN 5-325 MG TAB (NORCO/ VICODIN) PO PRN ×2 (04:42→14:31)
--- NOTE | 2022-01-15 05:58 | NUR ---
wound cleaned with saline and dressed /infected.vitals sings done BPS 118/71 HR86 RR 20 TEMP 97.9 SPO2-93% pt bed bathed and linen changed .due Meds Administered
[2022-01-15 06:00] VITALS: BP_SYST 118
[2022-01-15 06:06] LABS: FOLATE (FOLIC ACID) 7.6 ng/mL (>3.0)
[2022-01-15 07:22] LABS: BASOPHILS % (AUTO) 0.5 % (0.0-2.0); EOSINOPHILS # (AUTO) 0.3 K/uL (0.0-0.4); EOSINOPHILS % (AUTO) 4.4 % (0.0-4.0); HEMATOCRIT 23.9 % (36-54); HEMOGLOBIN 7.7 g/dL (14.0-18.0); LYMPHOCYTES # (AUTO) 0.9 K/uL (1.0-5.5); LYMPHOCYTES % (AUTO) 12.1 % (20.5-51.5); MEAN CORPUSCULAR HEMOGLOBIN 28 pg (27-31); MEAN CORPUSCULAR HGB CONC 32 % (32-36); MEAN CORPUSCULAR VOLUME 86 fL (79.0-98.0); MONOCYTES # (AUTO) 0.5 K/uL (0.0-1.0); MONOCYTES % (AUTO) 6.5 % (1.7-9.3); NEUTROPHILS # (AUTO) 5.9 K/uL (1.8-7.7); NEUTROPHILS % (AUTO) 76.5 % (40.0-70.0); PLATELET COUNT (AUTO) 326 K/uL (130-430); RED BLOOD CELL COUNT(AUTO) 2.78 MIL/uL (4.2-6.2); RED CELL DISTRIBUTION WIDTH 16.7 % (9.0-15.0); WHITE BLOOD COUNT (AUTO) 7.8 K/uL (4.8-10.8)
--- NOTE | 2022-01-15 07:30 | NUR ---
OPENING NOTE Patient in bed resting with eyes closed, no sign of distress or pain. Patient's heels are wrapped, dressing is clean and dry, and elevated on pillows. Breathing is nonlabored and even. All needs met at this time and safety checks made.
[2022-01-15 08:00] VITALS: BP_SYST 119
[2022-01-15] MEDS: ISOSORBIDE MONONITRATE 30 MG TAB.ER.24H PO SCH (09:08)
[2022-01-15] MEDS: FOLIC ACID 1 MG TABLET PO SCH (09:08)
[2022-01-15] MEDS: APIXABAN 2.5 MG TABLET PO SCH (09:09)
[2022-01-15] MEDS: CARVEDILOL 25 MG TABLET (COREG) PO SCH (09:09)
[2022-01-15 09:11] LABS: C-REACTIVE PROTEIN QUANT 12.2 mg/dL (0-0.5); CALCIUM 8.2 mg/dL (8.4-11.0); CREATININE 7.1 mg/dL (0.55-1.30); PHOSPHORUS 5.9 mg/dL (2.7-4.5); POTASSIUM 5.2 mmol/L (3.5-5.1)
[2022-01-15 09:20] LABS: ERYTHROCYTE SEDIMENTATION RATE 118 MM/HR (0-15)
[2022-01-15] MEDS ORDERED: VANC500F2 IV (09:49)
[2022-01-15] MEDS ORDERED: LEVO250T73 PO (09:49)
[2022-01-15] MEDS ORDERED: CAR30 PO (09:49)
[2022-01-15] MEDS ORDERED: VANCOMYCIN HCL 500 MG in NS 100 ML IV SCH (11:39)
[2022-01-15] MEDS ORDERED: HEPARIN SODIUM,PORCINE 5,000 UNITS/ML VIAL MC ONE (11:45)
--- NOTE | 2022-01-15 11:45 | NUR ---
HIGH ALERT NOTE: Called Dr. Massey back at [phone] identified within the medical roster to verify physician authenticity. Heparin for dialysis.
--- NOTE | 2022-01-15 11:46 | NUR ---
AFTER HD, PT WILL BE DISCHARGED TO HOME. INFORMED ANDREY, KAI DIRECTOR THAT PT HAS AN ORDER FOR IV VANCO TO BE INFUSED DURING HD FOR 45DAYS AT THE D[facility]. PER MS BALDERAS, SHE WILL ARRANGE THE VANCO IV TOMORROW AND COORDINATE WITH THE HD CENTER.
[2022-01-15 12:00] VITALS: BP_SYST 116
--- NOTE | 2022-01-15 12:42 | NUR ---
ROUNDS Patient sitting up in bed eating lunch while receiving dialysis. No sign of distress and patient denies pain. Patient is aware he will be discharged later today. All needs met at this time and safety checks made.
[2022-01-15 13:00] VITALS: BP_SYST 116
--- NOTE | 2022-01-15 15:25 | NUR ---
WOUND CARE AND PHOTOS Photos were taken of the patient's feet for wound documentation. Wound care performed per protocol. All needs met at this time and safety checks made.
--- NOTE | 2022-01-15 16:35 | NUR ---
D/C Patient Patient given medication reconciliation form and D/C instructions. Exit Care provided. Patient verbalized understanding. MD discussed with patient the results and treatment provided. Ambulatory with steady gait for discharge to home via private auto with family. Patient in stable condition, ID band removed. IV catheter removed, intact and dressing applied, no active bleeding. Patient educated on pain management. All belongings sent with patient.
[2022-01-15] MEDS ORDERED: EPOETIN ALFA-EPBX 4,000 UNITS/ML VIAL SUBCUT SCH (17:00)
[2022-01-16] MEDS ORDERED: levoFLOXacin 250 MG TABLET PO SCH (09:00)
== END 2022-01-15 16:35 | disposition home or self-care (01) | DRG 720 ==
LOC: SED 14:04 → SIC 18:12 → STU 01-14 18:57
PROVIDERS: ADMIT Preventive Medicine Preventive Medicine/Occupational Environmental Medicine; ATTEND Preventive Medicine Preventive Medicine/Occupational Environmental Medicine
PROC: 30233N1 Transfusion of Nonautologous Red Blood Cells into Peripheral Vein, Percutaneous Approach (ICD-10-PCS; principal; 2022-01-12)
PROC: 5A1D70Z Performance of Urinary Filtration, Intermittent, Less than 6 Hours Per Day (ICD-10-PCS; 2022-01-13)
PROC: 5A1D70Z Performance of Urinary Filtration, Intermittent, Less than 6 Hours Per Day (ICD-10-PCS; 2022-01-15)
DX: A41.9 Sepsis, unspecified organism (principal); J96.00 Acute respiratory failure, unspecified whether with hypoxia or hypercapnia; I50.33 Acute on chronic diastolic (congestive) heart failure; D63.1 Anemia in chronic kidney disease; E83.39 Other disorders of phosphorus metabolism; E83.41 Hypermagnesemia; E83.51 Hypocalcemia; I13.2 Hypertensive heart and chronic kidney disease with heart failure and with stage 5 chronic kidney disease, or end stage renal disease; E11.21 Type 2 diabetes mellitus with diabetic nephropathy; E11.69 Type 2 diabetes mellitus with other specified complication; L03.116 Cellulitis of left lower limb; R65.20 Severe sepsis without septic shock; E11.65 Type 2 diabetes mellitus with hyperglycemia; I25.10 Atherosclerotic heart disease of native coronary artery without angina pectoris; I48.91 Unspecified atrial fibrillation; I43 Cardiomyopathy in diseases classified elsewhere; N18.6 End stage renal disease; E11.22 Type 2 diabetes mellitus with diabetic chronic kidney disease; Z20.822 Contact with and (suspected) exposure to COVID-19; I48.0 Paroxysmal atrial fibrillation; M19.90 Unspecified osteoarthritis, unspecified site; S91.302A Unspecified open wound, left foot, initial encounter; M86.8X7 Other osteomyelitis, ankle and foot; S91.301A Unspecified open wound, right foot, initial encounter; X58.XXXA Exposure to other specified factors, initial encounter; L03.115 Cellulitis of right lower limb; D64.9 Anemia, unspecified; Z79.899 Other long term (current) drug therapy; Z79.1 Long term (current) use of non-steroidal anti-inflammatories (NSAID); Z79.891 Long term (current) use of opiate analgesic; Z79.01 Long term (current) use of anticoagulants; Y93.89 Activity, other specified; Y92.89 Other specified places as the place of occurrence of the external cause; Y99.8 Other external cause status; Z99.2 Dependence on renal dialysis
CPT/HCPCS: 36415; 36430; 71045; 73700-TC; 76376; 80048; 80053; 81000; 82272; 82550; 82607; 82728; 82746; 83540; 83550; 83605; 83615; 83735; 83880; 84100; 84484; 85025; 85044; 85379; 85610-TC; 85651-TC; 85730-TC; 86140; 86886; 86900; 86901; 86920; 87040; 87070-TC; 87081; 90935; 90937; 93005; 93306; 96374; 96376; 99291; G0378; J1200; J1644; J2405; J2543; J3010; J3370; J3490; J7060; P9021; Q5106

== ENCOUNTER 2022-03-02 13:50 | Inpatient (IN) | payer MEDICAID ==
[~2022-03-02] VITALS: Ht 193 cm; Wt 94.8 kg
[~2022-03-02 13:50] MED LIST changes: +CAR30 PO; -DOXY100T2 PO; +LEVO250T73 PO; +VANC500F2 IV
--- NOTE | 2022-03-02 14:05 | NUR ---
ER Dr. Uriostegui in waiting room examining patient.
--- NOTE | 2022-03-02 14:22 | NUR ---
Patient to ER bed 07 to gown for evaluation. Side rails up.
[2022-03-02] MEDS ORDERED: ASPIRIN 81 MG TAB.CHEW PO ONE (14:30)
--- NOTE | 2022-03-02 14:31 | NUR ---
ER Dr. Castro at bedside examining patient.
[2022-03-02 16:07] LABS: BASOPHILS # (AUTO) 0.1 K/uL (0.0-0.2); EOSINOPHILS # (AUTO) 0.3 K/uL (0.0-0.4); EOSINOPHILS % (AUTO) 5.6 % (0.0-4.0); HEMATOCRIT 23.7 % (36-54); HEMOGLOBIN 7.7 g/dL (14.0-18.0); MEAN CORPUSCULAR HEMOGLOBIN 30 pg (27-31); MEAN CORPUSCULAR HGB CONC 32 % (32-36); MEAN CORPUSCULAR VOLUME 91 fL (79.0-98.0); MONOCYTES # (AUTO) 0.5 K/uL (0.0-1.0); MONOCYTES % (AUTO) 10.8 % (1.7-9.3); NEUTROPHILS # (AUTO) 3.1 K/uL (1.8-7.7); NEUTROPHILS % (AUTO) 62.6 % (40.0-70.0); RED CELL DISTRIBUTION WIDTH 17.6 % (9.0-15.0)
[2022-03-02 16:12] LABS: ANION GAP 5 (5-15); CHLORIDE 106 mmol/L (98-107); CREATININE 6.72 mg/dL (0.55-1.30); GLUCOSE 82 mg/dL (70-99); UREA NITROGEN, BLOOD 33 mg/dL (8-21)
--- NOTE | 2022-03-02 16:24 | NUR ---
Patient came in from rehab facility c/o increased swelling and pain to lower legs. Pt has hx of ESKD and currently attends weekly dialysis treatments. Pt states he is residing at a rehab facility and has recently lost the ability to walk to the bathroom and complete other ADLs because of pain a fatigue. Pt was told he was anemic and possibly required a blood transfusion but they were unable to administer it at the facility. Pt states he exp chest pain and they were concerned that he may be having a cardiac related event. Pt was told to go to the ED right away. Lower extremities are swollen with erythema and discoloration. Care to be provided as ordered. Addendum: 03/02/22 at 1652 by [email or web address] Patient was brought to the ED by ACLS.
[2022-03-02 16:32] LABS: ALANINE AMINOTRANSFERASE 38 U/L (12-78); ASPARTATE AMINOTRANSFERASE 39 U/L (10-37); TOTAL BILIRUBIN 0.4 mg/dL (0.0-1.0)
[2022-03-02 16:33] LABS: PLATELET COUNT (AUTO) 110 K/uL (130-430)
[2022-03-02 16:36] LABS: GFR AFRICAN AMERICAN 11 mL/min (>90)
[2022-03-02] MEDS ORDERED: ALBUTEROL SULFATE 0.083% 2.5 MG/3 ML VIAL.NEB INH ONE (18:30)
[2022-03-02] MEDS ORDERED: DEXTROSE 50% JECT 50 ML DISP.SYRIN IVP ONE (18:30)
[2022-03-02] MEDS ORDERED: INSULIN REGULAR, HUMAN 10 UNITS/0.1 ML, 3 ML VIAL IVP ONE (18:30)
--- NOTE | 2022-03-02 18:46 | NUR ---
Admit bed requested Patient will be admitted to care of Dr. ROBB. Admitted to TELE unit. Diagnosis CHEST PAIN; FLUID OVERLOAD Inpatient (Yes or No) Y Observation (Yes or No)N Orientation concerns or request close to nursing station (Yes or No) N Covid Status NEG On vent or bipap N Isolation requirements N Needs a sitter N From Home (Yes or if No enter name of facility) Y Requires Dialysis (Yes or No) [] Y Med Rec Completed (Yes of No) [] Y
--- NOTE | 2022-03-02 18:56 | NUR ---
Medication reconciliation completed with information provided by PATIENT. Any prior medication reconciliation on file was reviewed and corrected.
[2022-03-02] MEDS ORDERED: HYDROcodone/ACETAMIN 5-325 MG TAB (NORCO/ VICODIN) PO PRN (19:45)
[2022-03-02] MEDS ORDERED: ERGOCALCIFEROL 50000 UNIT PO SCH (19:45)
[2022-03-02] MEDS ORDERED: NALOXONE HCL 0.4 MG/ML AMP (NARCAN) IVP PRN (19:45)
[2022-03-02] MEDS ORDERED: PROMETHAZINE-DM 6.25 MG-15 MG/5 ML UDC PO PRN (19:45)
[2022-03-02] MEDS ORDERED: LEVOFLOXACIN 250 MG/D5W 50 ML IV SCH (20:15)
--- NOTE | 2022-03-02 20:18 | NUR ---
Received call from dialysis nurse ROBYN Arguello stating she would be at patient's bedside in 15 mins.
--- NOTE | 2022-03-02 20:20 | NUR ---
covid swab and MRSA swab done and sent to lab.
--- NOTE | 2022-03-02 20:50 | NUR ---
LAB AT BEDSIDE
[2022-03-02] MEDS: APIXABAN 2.5 MG TABLET PO SCH (21:00)
[2022-03-02] MEDS ORDERED: NON-FORMULARY MEDICATION (Sucroferric Oxyhydroxide (Velphoro) 1 TAB) PO SCH (21:00)
--- NOTE | 2022-03-02 21:45 | NUR ---
Patient will be admitted to care of DR ROBB. Admitted to TELE unit. Will go to room 100A. Belongings list completed. Complete and up to date summary report printed. SBAR report given to ROBYN Saeed at bedside with opportunity for questions.
[2022-03-02] MEDS ORDERED: HEPARIN SODIUM, PORCINE 10,000 UNITS/ 10 ML VIAL MC ONE ×2 (22:15)
[2022-03-02] MEDS ORDERED: HEPARIN SODIUM,PORCINE 5,000 UNITS/ML VIAL ONE (22:38)
[2022-03-03] VITALS: BP_SYST 154
[2022-03-03] MEDS: DILTIAZEM HCL 30 MG TABLET PO SCH ×4 (02:18→17:51)
[2022-03-03] MEDS: CARVEDILOL 25 MG TABLET (COREG) PO SCH ×3 (02:18→20:47)
[2022-03-03] MEDS: AMITRIPTYLINE HCL 25 MG TABLET (ELAVIL) PO SCH ×2 (02:19→20:47)
[2022-03-03] MEDS: PREGABALIN 25 MG CAPSULE (LYRICA) PO SCH ×2 (02:19→20:47)
[2022-03-03] MEDS ORDERED: MORPHINE 4 MG INJ. 4 MG/ML VIAL IVP PRN (02:30)
[2022-03-03] MEDS ORDERED: HYDROcodone/ACETAMIN 5-325 MG TAB (NORCO/ VICODIN) PO PRN (02:30)
[2022-03-03] MEDS ORDERED: TEMAZEPAM 7.5 MG CAPSULE PO PRN (02:30)
[2022-03-03] MEDS ORDERED: MORPHINE 4 MG INJ. 4 MG/ML VIAL ONE (02:41)
[2022-03-03] MEDS ORDERED: VANCOMYCIN HCL 1 GM/NS PREMIX 250 ML IV ONE (03:00)
[2022-03-03 04:02] VITALS: BP_SYST 154
[2022-03-03] MEDS ORDERED: VANCOMYCIN HCL 1000 MG/VIAL IV ONE (04:04)
--- NOTE | 2022-03-03 04:23 | NUR ---
PATIENT ADMITTED TO ROOM 100 (A). DIALYSIS COMPLETED. 2LITERS REMOVED. NO ACUTE DISTRESS NOTED. WILL CONTINUE TO MONITOR.
--- NOTE | 2022-03-03 05:43 | NUR ---
CONSULTATION PAGED/CALLED Reason for Consultation:INFECTED WOUND Person Who was Notified: LU Consulting Physician: Lebron COLE Buoy Tender Specialty: Ordering Physician: CLARISSE
--- NOTE | 2022-03-03 05:43 | NUR ---
CONSULTATION PAGED/CALLED Reason for Consultation: CHF Person Who was Notified: DR Jenny POSADA Consulting Physician:Anika POSADA Box Sealing Machine Feeder Specialty: Ordering Physician: CLARISSE
[2022-03-03 06:54] LABS: BASOPHILS # (AUTO) 0.1 K/uL (0.0-0.2); EOSINOPHILS # (AUTO) 0.3 K/uL (0.0-0.4); EOSINOPHILS % (AUTO) 6.3 % (0.0-4.0); HEMATOCRIT 22.1 % (36-54); LYMPHOCYTES % (AUTO) 20.2 % (20.5-51.5); MEAN CORPUSCULAR HEMOGLOBIN 30 pg (27-31); MEAN CORPUSCULAR HGB CONC 33 % (32-36); MEAN CORPUSCULAR VOLUME 90 fL (79.0-98.0); MONOCYTES # (AUTO) 0.6 K/uL (0.0-1.0); MONOCYTES % (AUTO) 11.1 % (1.7-9.3); NEUTROPHILS # (AUTO) 3.1 K/uL (1.8-7.7); NEUTROPHILS % (AUTO) 61.4 % (40.0-70.0); PLATELET COUNT (AUTO) 101 K/uL (130-430); RED BLOOD CELL COUNT(AUTO) 2.45 MIL/uL (4.2-6.2); RED CELL DISTRIBUTION WIDTH 17.7 % (9.0-15.0); WHITE BLOOD COUNT (AUTO) 5.1 K/uL (4.8-10.8)
[2022-03-03] MEDS ORDERED: PROMETHAZINE-DM 6.25 MG-15 MG/5 ML UDC PO PRN (07:01)
[2022-03-03 07:26] LABS: HEMOGLOBIN 7.2 g/dL (14.0-18.0)
[2022-03-03 07:41] LABS: ALBUMIN 1.9 g/dL (3.4-4.8); CALCIUM 8.4 mg/dL (8.4-11.0); CREATININE 4.77 mg/dL (0.55-1.30); FREE T4 (FREE THYROXINE) 0.8 ng/dl (0.8-1.5); PHOSPHORUS 3.9 mg/dL (2.7-4.5); THYROID STIMULATING HORMONE 3.12 uIu/mL (0.36-3.74); TOTAL BILIRUBIN 0.6 mg/dL (0.0-1.0)
[2022-03-03 07:44] LABS: TOTAL IRON BIND. CAPACITY 145 ug/dL (250-450)
--- NOTE | 2022-03-03 07:52 | NUR ---
CONSULTATION PAGED/CALLED Reason for Consultation: [] ELEVATED CREA Person Who was Notified: [] HAYES Consulting Physician: [] DR LYUDMILA MCKEON IMMIGRATION LAWYER FOR DR THONY Ruelas Veneer Supervisor Specialty: [] NEPHRO Ordering Physician: [] DR ROBB
[2022-03-03] MEDS: BUMETANIDE 1 MG TABLET PO SCH (08:27)
[2022-03-03] MEDS: SUCROFERRIC OXYHYDROXIDE PO SCH ×3 (08:27→20:51)
[2022-03-03] MEDS: LACTOBACILLUS RHAMNOSUS GG 1 CAP CAPSULE PO SCH ×2 (08:28→20:47)
[2022-03-03] MEDS: NEPHROVITE, (FOLIC ACID/VITAMIN B COMP W-C 1 TAB) PO SCH (08:29)
[2022-03-03] MEDS: FOLIC ACID 1 MG TABLET PO SCH (08:29)
[2022-03-03] MEDS: ISOSORBIDE MONONITRATE 30 MG TAB.ER.24H PO SCH (08:29)
[2022-03-03] MEDS: APIXABAN 2.5 MG TABLET PO SCH ×2 (08:31→20:48)
[2022-03-03 09:30] VITALS: BP_SYST 131
[2022-03-03 11:22] VITALS: BP_SYST 116
[2022-03-03] MEDS ORDERED: EPOETIN ALFA-EPBX 4,000 UNITS/ML VIAL SUBCUT ONE ×2 (12:30→14:00)
[2022-03-03] MEDS ORDERED: CEFTAZIDIME/AVIBACTAM 0.94 GM in NS 100 ML IV SCH (15:00)
[2022-03-03 15:22] VITALS: BP_SYST 122
[2022-03-03] MEDS ORDERED: DAPTOmycin 500 MG in NS 50 ML IV SCH (17:00)
--- NOTE | 2022-03-03 18:07 | NUR ---
rn notes patient remains on room air, no sob noted. HD patient. MWF. 2 L out yesterday. A flutter on the monitor. Edema B lower extremity. PICC @ L chest present, R chest perma cath for HD. Retacrit given SQ. IV abx given.
--- NOTE | 2022-03-03 18:59 | NUR ---
wound care done. both feet
[2022-03-03 22:00] VITALS: BP_SYST 145
[2022-03-04] MEDS: DILTIAZEM HCL 30 MG TABLET PO SCH ×3 (00:21→12:11)
[2022-03-04 05:06] VITALS: BP_SYST 139
[2022-03-04] MEDS ORDERED: ERGOCALCIFEROL 50000 UNIT PO SCH (07:00)
--- NOTE | 2022-03-04 07:30 | NUR ---
OPENING NOTE Patient in bed resting with eyes closed, no sign of distress or pain. IV site is clean, dry, intact, and saline locked. Breathing is nonlabored and even, patient is on room air. All needs met at this time and safety checks made.
[2022-03-04 07:43] LABS: BASOPHILS % (AUTO) 1.1 % (0.0-2.0); EOSINOPHILS # (AUTO) 0.3 K/uL (0.0-0.4); EOSINOPHILS % (AUTO) 7.9 % (0.0-4.0); HEMATOCRIT 23.2 % (36-54); HEMOGLOBIN 7.6 g/dL (14.0-18.0); LYMPHOCYTES % (AUTO) 22.3 % (20.5-51.5); MEAN CORPUSCULAR HEMOGLOBIN 30 pg (27-31); MEAN CORPUSCULAR HGB CONC 33 % (32-36); MEAN CORPUSCULAR VOLUME 91 fL (79.0-98.0); MONOCYTES # (AUTO) 0.6 K/uL (0.0-1.0); MONOCYTES % (AUTO) 13.5 % (1.7-9.3); NEUTROPHILS # (AUTO) 2.4 K/uL (1.8-7.7); NEUTROPHILS % (AUTO) 55.2 % (40.0-70.0); PLATELET COUNT (AUTO) 115 K/uL (130-430); RED BLOOD CELL COUNT(AUTO) 2.56 MIL/uL (4.2-6.2); RED CELL DISTRIBUTION WIDTH 17.9 % (9.0-15.0); WHITE BLOOD COUNT (AUTO) 4.3 K/uL (4.8-10.8)
[2022-03-04 07:50] LABS: CALCIUM 8.3 mg/dL (8.4-11.0); CREATININE 6.1 mg/dL (0.55-1.30); VANCOMYCIN,RANDOM 9.5 ug/mL
[2022-03-04 08:19] VITALS: BP_SYST 155
[2022-03-04] MEDS: SUCROFERRIC OXYHYDROXIDE PO SCH (09:00)
[2022-03-04] MEDS: FOLIC ACID 1 MG TABLET PO SCH (09:36)
[2022-03-04] MEDS: BUMETANIDE 1 MG TABLET PO SCH (09:36)
[2022-03-04] MEDS: ISOSORBIDE MONONITRATE 30 MG TAB.ER.24H PO SCH (09:36)
[2022-03-04] MEDS: LACTOBACILLUS RHAMNOSUS GG 1 CAP CAPSULE PO SCH (09:37)
[2022-03-04] MEDS: NEPHROVITE, (FOLIC ACID/VITAMIN B COMP W-C 1 TAB) PO SCH (09:37)
[2022-03-04] MEDS: CARVEDILOL 25 MG TABLET (COREG) PO SCH (09:38)
[2022-03-04] MEDS: APIXABAN 2.5 MG TABLET PO SCH (09:39)
[2022-03-04] MEDS ORDERED: VANCOMYCIN HCL 1,500 MG in NS 250 ML IV ONE (10:00)
[2022-03-04 12:13] VITALS: BP_SYST 130
[2022-03-04] MEDS ORDERED: SODIUM POLYSTYRENE SULFONATE 15 GM/60 ML UDBTL PO ONE (13:45)
--- NOTE | 2022-03-04 14:00 | NUR ---
WOUNDS CARE Wound care provided for the patient's lower extremities bilaterally. All needs met at this time and safety checks made.
--- NOTE | 2022-03-04 14:00 | NUR ---
MEDICATIONS REFUSAL Patient refused his kayexalate. Educated patient on the benefits of taking the dose, patient continued to refuse.
--- NOTE | 2022-03-04 14:38 | NUR ---
ATTENDING MD ORDERED TRANSFER BACK TO SNF, [facility]. SPOKE TO JOANNA SOTELOSODA WORKER AND CONFIRMED THAT PT IS GOING BACK TO RM 103A.
--- NOTE | 2022-03-04 15:10 | NUR ---
ARRANGED TRANSPORT WITH CALL THE CAR. SPOKE WITH LETY TEL #[phone]. LEAD RAMP SERVICE MAN TIME IS 1600. REF # [id number] GOING TO [facility].
[2022-03-04 15:37] VITALS: BP_SYST 130
--- NOTE | 2022-03-04 16:50 | NUR ---
PT TRANSFERRED Report given to Thea at [facility]. Transfer packet with Transfer Orders and Medication Reconciliation form given to EMT with report. Exitcare provided. [facility] ID band removed, replaced with ID band with pt's name and . Patient discharged with PICC line. All belongings sent with patient. Patient left floor via gurney escorted by EMT in no distress.
[2022-03-05] MEDS ORDERED: EPOETIN ALFA-EPBX 10,000 UNITS/ML VIAL IV SCH (17:00)
[2022-03-05] MEDS ORDERED: EPOETIN ALFA-EPBX 4,000 UNITS/ML VIAL SUBCUT SCH (17:00)
== END 2022-03-04 17:00 | DRG 194 ==
LOC: SED 13:50 → STU 18:40
PROVIDERS: ADMIT Internal Medicine; ATTEND Internal Medicine
PROC: 02H633Z Insertion of Infusion Device into Right Atrium, Percutaneous Approach (ICD-10-PCS; 2022-02-21)
PROC: 5A1D70Z Performance of Urinary Filtration, Intermittent, Less than 6 Hours Per Day (ICD-10-PCS; principal; 2022-03-02)
DX: I13.2 Hypertensive heart and chronic kidney disease with heart failure and with stage 5 chronic kidney disease, or end stage renal disease (principal); E43 Unspecified severe protein-calorie malnutrition; N18.6 End stage renal disease; E11.22 Type 2 diabetes mellitus with diabetic chronic kidney disease; D63.1 Anemia in chronic kidney disease; I48.20 Chronic atrial fibrillation, unspecified; R07.89 Other chest pain; I50.43 Acute on chronic combined systolic (congestive) and diastolic (congestive) heart failure; E87.5 Hyperkalemia; Z20.822 Contact with and (suspected) exposure to COVID-19; E11.40 Type 2 diabetes mellitus with diabetic neuropathy, unspecified; Z86.31 Personal history of diabetic foot ulcer; R06.03 Acute respiratory distress
CPT/HCPCS: 36415; 71045; 80048; 80053; 80202; 83540; 83550; 83880; 84100; 84439; 84443; 84484; 85025; 86886; 86900; 86901; 87081; 90935; 93005; 94640; 99291; G0378; J0713; J0878; J1644; J1956; J2270; J3370; J7030; J7050; J7060; J7613; Q5106